=== PATIENT | female | born 1955 | race Caucasian/White ===

== ENCOUNTER 2017-01-18 16:42 | Emergency (ER) | payer OTHER ==
[~2017-01-18] VITALS: Ht 175.3 cm; Wt 91.9 kg
[2017-01-18 16:48] VITALS: TEMP 36.8; Ht 175.3 cm; Wt 91.9 kg
[2017-01-18] MEDS ORDERED: MULT-506 PO (16:59)
[2017-01-18] MEDS ORDERED: AMLO-114 PO (16:59)
[2017-01-18] MEDS ORDERED: VALS320T PO (16:59)
--- NOTE | 2017-01-18 17:33 | EMERGENCY ROOM VISIT NOTE ---
History First contact with patient: 17:07 Chief Complaint: NEEDLE STICK Stated Complaint: ACCIDENTAL NEEDLE STICK - History of Present Illness The patient is a 61 year old female who presents to the Emergency Room via private vehicle with complaints of "accidental needlestick Workmen's Compensation". 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 She states that today between 1:30 PM and 2 PM she was withdrawing peritoneal fluid, and the needle accidentally struck her in the left index finger pad. It did go through gloves, and was saturated with peritoneal fluid. Her finger began to bleed. She notes minimal pain. She denies any numbness or tingling. There was minimal blood loss. She is unsure of her tetanus immunization, but notes she'll follow with her family doctor to have this updated and declined today. She declined any prophylactic medication for HIV. She does know the source patient name of which was provided and written on the documentation regarding blood draw. Patient notes that the source patient was hepatitis B and C negative as of one month ago. She does have her hepatitis B titers. She states that today around 5:15 PM she did speak with one of the members of the employee health department, Tip Santana. Review of Systems A complete 6-point Review of Systems was discussed with the patient, with pertinent positives and negatives listed in the History of Present Illness. All remaining Review of Systems questions can be considered negative unless otherwise specified. Past Medical/Surgical History High blood pressure, , tubal ligation Family History Diabetes, heart disease, blood pressure Social History Smoking Status: Former Smoker Social History: Patient lives at home with . Current/Historical Medications Scheduled Amlodipine (Norvasc), 10 MG PO QAM Multivitamin (Multivitamin), 1 TAB PO DAILY Valsartan (Diovan), 320 MG PO QPM Allergies Coded Allergies: No Known Allergies (Unverified , 01/18/17) Physical Exam Vital Signs Date Time Temp Pulse Resp B/P Pulse Ox O2 Delivery O2 Flow Rate FiO2 01/18/17 18:11 63 18 145/102 98 01/18/17 16:48 36.8 68 18 129/83 97 Room Air Physical Exam VITAL SIGNS - Vital signs and nursing notes were reviewed. Patient is afebrile , normotensive, non-tachycardic and is saturating well on room air 97%. GENERAL -61-year-old female appearing her stated age who is in no acute distress. Communicates well with provider and answers questions appropriately. SKIN - Without rashes. There is a small punctate area evident of a puncture wound on the left second digit finger pad. No active bleeding. No evidence of infection. EXTREMITIES: Full range of motion of the affected digit. Good capillary refill. She is neurovascularly intact in this digit. Medical Decision & Procedures Laboratory Results Test 01/18/17 17:53 Hepatitis C Antibody NEG (NEG) HIV (1&2) Ab and P24 Ag, 4th Gener NEG (NEG) Medical Decision Patient was seen and evaluated as above. After obtaining a thorough history and physical examination the appropriate paperwork was completed regarding a significant body fluid exposure to peritoneal fluid. Patient notes that she already cleansed the wound, and declines further cleansing. It appears that it has been thoroughly cleansed. The paperwork regarding HIV consent was also completed, and patient provided consent. I then elected to order HIV and hepatitis testing. I did speak with Tip Santana regarding the patient case, and she indicated that the source patient will also be tested. The patient declined HIV prophylaxis. It appears it is very low risk at this time. The source patient can be tested rapidly. The patient is to be notified of the results, either by her employer or through our employee health. I informed the patient that if she does not receive results within 3 days she is to call back here to the emergency department, and she was provided the number. She was to follow-up with her family doctor regarding her tetanus. I informed her that she is to follow up with her Workmen's Compensation individual regarding today' s visit. Blood was drawn. Patient was educated upon worrisome symptoms which to return, had questions prior to discharge, and was discharged home in good condition. In evaluation treatment this patient following differential diagnoses were entertained: Significant body fluid exposure, needlestick, cellulitis, among others. Impression Primary Impression: Needle stick injury of finger Departure Information Dispostion Home / Self-Care Condition GOOD Referrals No Doctor, Assigned (PCP) Patient Instructions [facility] Additional Instructions You were seen in the emergency Department for a needlestick injury of your finger. Please keep finger clean. You have consented to HIV, and hepatitis testing at this time. You have respectfully declined prophylaxis of HIV, as we discussed you're at low risk. The source patient is being tested currently. You be notified of the results. Please follow-up with your employer for further results as well as notification of your injury. Please notify her employer injury. Please return to the emergency department with any new/concerning symptoms. If you do not hear back from us within 3 days of your results please call the emergency department at [phone] Thank you for your time.
[2017-01-18 18:11] VITALS: BP 145/102; PULSE 63; O2SAT 98
[2017-01-19 11:52] LABS: HEPATITIS B AB POS
== END 2017-01-18 18:12 | disposition home or self-care (01) ==
LOC: C.EDB 16:45 → C.EDD 18:12
DX: S60.941A Unspecified superficial injury of left index finger, initial encounter (principal); W46.0XXA Contact with hypodermic needle, initial encounter; Z77.21 Contact with and (suspected) exposure to potentially hazardous body fluids; I10 Essential (primary) hypertension; Z98.51 Tubal ligation status; Z83.3 Family history of diabetes mellitus; Z87.891 Personal history of nicotine dependence; Z79.899 Other long term (current) drug therapy; Y92.238 Other place in hospital as the place of occurrence of the external cause; Y99.0 Civilian activity done for income or pay; Y93.89 Activity, other specified